=== PATIENT | female | born 1945 | race Caucasian/White ===

== ENCOUNTER 2021-01-24 20:13 | Inpatient (IN) ==
[2021-01-25] MEDS ORDERED: Naloxone 0.4 MG/ML INJ IVP PRN ×2 (00:04→17:07)
[2021-01-25] MEDS ORDERED: Norepinephrine 4 MG/254 ML IV.SOLN IVC SCH (00:45)
[2021-01-25] MEDS ORDERED: *HR* HYDROcodone/Acet 5/325 mg TABLET PO PRN ×2 (01:19→01:20)
[2021-01-25] MEDS ORDERED: Albuterol 2.5 MG/3 ML NEBULIZER IH PRN (01:21)
[2021-01-25] MEDS ORDERED: Ondansetron 4 MG/2 ML VIAL IVP PRN ×2 (01:37→17:07)
[2021-01-25 02:32] LABS: VBG Ionized Calcium 1.06 mmol/L (1.15-1.35)
[2021-01-25 02:48] LABS: Basophils % 0.2 %; Hematocrit 37.1 % (35.3-44.9); Hemoglobin 12.3 g/dL (11.5-15.4); Immature Granulocytes % 1.6 % (0-4); Lymphocytes # 0.6 K/mcL (0.6-4.6); Lymphocytes % 9.5 %; Mean Corpuscular HGB Conc 33.2 g/dL (31.6-35.5); Mean Corpuscular Hemoglobin 34.9 pg (28.0-33.3); Mean Corpuscular Volume 105.4 fL (83.0-100.0); Mean Platelet Volume 11.9 fL (9.4-12.4); Monocytes # 0.5 K/mcL (0.0-1.3); Monocytes % 7.8 %; Neutrophils # 5.2 K/mcL (1.6-8.9); Platelet Count 149 K/mcL (140-400); Red Blood Count 3.52 M/mcL (3.82-4.97); Red Cell Distribution Width 16.2 % (11.5-14.5); Segmented Neutrophils % 80.9 %; White Blood Count 6.4 K/mcL (4.3-11.1)
[2021-01-25 03:03] LABS: INR 1.1; Prothrombin Time 12.5 Seconds (9.4-12.1)
[2021-01-25 03:09] LABS: Alanine Aminotransferase 92 Units/L (7-52); Albumin 3.1 g/dL (3.5-5.7); Albumin/Globulin Ratio 0.9 (1.1-2.2); Alkaline Phosphatase 39 Units/L (34-104); Aspartate Amino Transferase 198 Units/L (13-39); BUN/Creatinine Ratio 23 (6-26); Bilirubin,Direct 0.1 mg/dL (0.0-0.2); Bilirubin,Indirect 0.3 mg/dL (0.0-1.0); Bilirubin,Total 0.4 mg/dL (0.3-1.0); Blood Urea Nitrogen 25 mg/dL (8-23); C-Reactive Protein 174 mg/L (Less than 10); Calcium 7.3 mg/dL (8.6-10.3); Carbon Dioxide 25 mEq/L (23-29); Chloride 104 mEq/L (98-107); Globulin 3.3 g/dL (2.4-3.5); Glucose 118 mg/dL (70-105); Magnesium 1.6 mg/dL (1.6-2.6); Osmolality,Calculated 287 (280-300); Phosphorous 2.4 mg/dL (2.7-4.5); Potassium 4.2 mEq/L (3.5-5.1); Sodium 136 mEq/L (136-145); Total Protein 6.4 g/dL (6.4-8.9); eGFR For African Americans > 60 (> 60); eGFR For Non-African Americans 50 (> 60)
[2021-01-25] MEDS ORDERED: *HR* Dextrose 50 % in Water (Vial) 50 ML VIAL IVP PRN ×2 (03:25→17:07)
[2021-01-25] MEDS ORDERED: D5% in Water 1,000 ML IVC PRN ×2 (03:25→17:07)
[2021-01-25] MEDS ORDERED: Dextrose Gel 15 GM/37.5 ML TUBE PO PRN ×4 (03:25→17:07)
[2021-01-25] MEDS: Calcium Gluconate 1gm/50mL 1 GM/50 ML BAG IVPB SCH ×2 (03:58→04:42)
[2021-01-25 05:08] LABS: Adenovirus Not Detected (Not Detect); Coronavirus 229E Not Detected (Not Detect); Coronavirus HKU1 Not Detected (Not Detect); Coronavirus NL63 Not Detected (Not Detect); Coronavirus OC43 Not Detected (Not Detect)
[2021-01-25 05:10] LABS: Bordetella Pertussis Not Detected (Not Detect); Chlamydophila pneumoniae Not Detected (Not Detect); Human Metapneumovirus Not Detected (Not Detect); Human Rhinovirus/Enterovirus Not Detected (Not Detect); Influenza A Subtype 2009 H1 Not Detected (Not Detect); Influenza B Not Detected (Not Detect); Mycoplasma pneumoniae Not Detected (Not Detect); Parainfluenza Virus 1 Not Detected (Not Detect); Parainfluenza Virus 2 Not Detected (Not Detect); Parainfluenza Virus 3 Not Detected (Not Detect); Parainfluenza Virus 4 Not Detected (Not Detect); Respiratory Syncytial Virus Not Detected (Not Detect); SARS-CoV-2 DETECTED (Not Detect)
[2021-01-25] MEDS ORDERED: *HR* Heparin 5,000 UNIT/ML VIAL SQ SCH (06:00)
[2021-01-25] MEDS ORDERED: Azithromycin 500 MG in 0.9 % Sodium Chloride 250 ML IVPB SCH (07:00)
[2021-01-25] MEDS: Piperacillin/Tazobactam 3.375 GM in 0.9 % Sodium Chloride Mini Bag 100 ML IVPB SCH ×2 (08:40→16:48)
[2021-01-25] MEDS ORDERED: Aspirin 81 MG TAB.CHEW PO SCH (09:00)
[2021-01-25] MEDS ORDERED: Dexamethasone Sodium Phos/PF 10 MG/ML VIAL IVP SCH ×2 (09:00)
[2021-01-25] MEDS ORDERED: cefTRIAXone 1,000 MG in Water for inj. (sterile) 10 ML IVP SCH (09:00)
[2021-01-25] MEDS ORDERED: Azithromycin 250 MG TABLET PO SCH (09:00)
[2021-01-25 09:01] LABS: Troponin I 0.07 ng/mL (< 0.04)
[2021-01-25] MEDS: Insulin LISPRO 300 UNITS/3 ML VIAL SUBQ SCH ×4 (09:55→21:19)
[2021-01-25] MEDS ORDERED: *HR* Enoxaparin 40 MG/0.4 ML SYRINGE SQ SCH (12:00)
[2021-01-25] MEDS ORDERED: Insulin LISPRO 300 UNITS/3 ML VIAL SUBQ SCH (21:00)
[2021-01-25 22:27] LABS: ABG Base Excess 2 mEq/L (-2 to 3); ABG HCO3 30 mEq/L (21-27); ABG Oxygen Saturation 87 % (95-98); ABG PCO2 61 mmHg (35-45); ABG PO2 60 mmHg (85-104); ABG TCO2 32 mEq/L (20-26)
[2021-01-26 04:00] LABS: Hematocrit 37.3 % (35.3-44.9); Mean Corpuscular HGB Conc 32.2 g/dL (31.6-35.5); Mean Corpuscular Hemoglobin 33.9 pg (28.0-33.3); Mean Corpuscular Volume 105.4 fL (83.0-100.0); Mean Platelet Volume 12.8 fL (9.4-12.4); Platelet Count 134 K/mcL (140-400); Red Blood Count 3.54 M/mcL (3.82-4.97); Red Cell Distribution Width 16.4 % (11.5-14.5); White Blood Count 5.9 K/mcL (4.3-11.1)
[2021-01-26 04:19] LABS: Alanine Aminotransferase 89 Units/L (7-52); Albumin 3.1 g/dL (3.5-5.7); Alkaline Phosphatase 39 Units/L (34-104); Aspartate Amino Transferase 94 Units/L (13-39); BUN/Creatinine Ratio 23 (6-26); Bilirubin,Total 0.4 mg/dL (0.3-1.0); Blood Urea Nitrogen 21 mg/dL (8-23); Calcium 8.4 mg/dL (8.6-10.3); Carbon Dioxide 30 mEq/L (23-29); Chloride 104 mEq/L (98-107); Globulin 3.2 g/dL (2.4-3.5); Glucose 116 mg/dL (70-105); Magnesium 2.3 mg/dL (1.6-2.6); Osmolality,Calculated 292 (280-300); Phosphorous 2.8 mg/dL (2.7-4.5); Potassium 4.9 mEq/L (3.5-5.1); Sodium 139 mEq/L (136-145); Total Protein 6.3 g/dL (6.4-8.9); eGFR For African Americans > 60 (> 60); eGFR For Non-African Americans 59 (> 60)
[2021-01-26 04:41] LABS: C-Reactive Protein 248 mg/L (Less than 10)
[2021-01-26] MEDS ORDERED: *HR* Enoxaparin 40 MG/0.4 ML SYRINGE SQ SCH (06:00)
[2021-01-26] MEDS ORDERED: Azithromycin 500 MG in 0.9 % Sodium Chloride 250 ML IVPB SCH (07:00)
[2021-01-26] MEDS: Insulin LISPRO 300 UNITS/3 ML VIAL SUBQ SCH ×4 (07:31→20:01)
[2021-01-26] MEDS: Piperacillin/Tazobactam 3.375 GM in 0.9 % Sodium Chloride Mini Bag 100 ML IVPB SCH ×4 (07:39→23:21)
[2021-01-26] MEDS: Dexamethasone Sodium Phos/PF 10 MG/ML VIAL IVP SCH (07:41)
[2021-01-26] MEDS: Aspirin 81 MG TAB.CHEW PO SCH (07:41)
[2021-01-26] MEDS: Azithromycin 250 MG TABLET PO SCH (07:43)
[2021-01-26 08:06] LABS: Lymphocytes # 0.5 K/mcL (0.6-4.6); Monocytes # 0.4 K/mcL (0.0-1.3); Neutrophils # 4.8 K/mcL (1.6-8.9); Reactive Lymphocytes Present (Not Present)
[2021-01-26 08:07] LABS: Platelet Estimate Decreased (Normal)
[2021-01-26 14:54] LABS: VBG Ionized Calcium 1.03 mmol/L (1.15-1.35)
[2021-01-26] MEDS ORDERED: NON-FORMULARY MEDICATION 1 EACH EACH (Ipratropium/Albuterol Sulfate 120 PUFF Inhaler) IH PRN (15:16)
[2021-01-26] MEDS: *HR* HYDROcodone/Acet 5/325 mg TABLET PO PRN ×2 (16:22→23:26)
[2021-01-26] MEDS: *HR* Enoxaparin 40 MG/0.4 ML SYRINGE SQ SCH (17:55)
[2021-01-26] MEDS ORDERED: Ketorolac 30 MG/ML VIAL IVP ONE (20:15)
[2021-01-26] MEDS: Ipratropium 1 PUFF INHALER IH PRN (20:33)
[2021-01-26] MEDS: Benzonatate 100 MG CAPSULE PO PRN (20:57)
[2021-01-27] MEDS ORDERED: 0.9 % Sodium Chloride 500 ML IVC ONE (04:10)
[2021-01-27] MEDS ORDERED: Ringers Solution, Lactated 500 ML IVC ONE (04:15)
[2021-01-27] MEDS: *HR* Enoxaparin 40 MG/0.4 ML SYRINGE SQ SCH ×2 (05:00→17:02)
[2021-01-27] MEDS: Piperacillin/Tazobactam 3.375 GM in 0.9 % Sodium Chloride Mini Bag 100 ML IVPB SCH ×3 (08:50→23:49)
[2021-01-27] MEDS: Aspirin 81 MG TAB.CHEW PO SCH (08:51)
[2021-01-27] MEDS: Dexamethasone Sodium Phos/PF 10 MG/ML VIAL IVP SCH (08:51)
[2021-01-27] MEDS: Azithromycin 250 MG TABLET PO SCH (08:51)
[2021-01-27] MEDS: Insulin LISPRO 300 UNITS/3 ML VIAL SUBQ SCH ×4 (08:52→21:30)
[2021-01-27] MEDS ORDERED: Ringers Solution, Lactated 1,000 ML IVC SCH (13:00)
[2021-01-27 22:43] LABS: Hematocrit 39.4 % (35.3-44.9); Hemoglobin 12.1 g/dL (11.5-15.4); Mean Corpuscular HGB Conc 30.7 g/dL (31.6-35.5); Mean Corpuscular Hemoglobin 34.1 pg (28.0-33.3); Mean Platelet Volume 10.9 fL (9.4-12.4); Platelet Count 199 K/mcL (140-400); Red Blood Count 3.55 M/mcL (3.82-4.97); Red Cell Distribution Width 16.8 % (11.5-14.5); White Blood Count 5.6 K/mcL (4.3-11.1)
[2021-01-27 23:02] LABS: Calcium 8.9 mg/dL (8.6-10.3); Magnesium 2.4 mg/dL (1.6-2.6); Potassium 4.8 mEq/L (3.5-5.1)
[2021-01-28] MEDS: *HR* HYDROcodone/Acet 5/325 mg TABLET PO PRN ×2 (03:33→20:55)
[2021-01-28] MEDS: *HR* Enoxaparin 40 MG/0.4 ML SYRINGE SQ SCH ×2 (05:35→17:06)
[2021-01-28 06:29] LABS: Hematocrit 39.8 % (35.3-44.9); Hemoglobin 12.8 g/dL (11.5-15.4); Mean Corpuscular HGB Conc 32.2 g/dL (31.6-35.5); Mean Corpuscular Hemoglobin 34.2 pg (28.0-33.3); Mean Corpuscular Volume 106.4 fL (83.0-100.0); Mean Platelet Volume 11.2 fL (9.4-12.4); Platelet Count 231 K/mcL (140-400); Red Blood Count 3.74 M/mcL (3.82-4.97); Red Cell Distribution Width 16.6 % (11.5-14.5)
[2021-01-28 06:52] LABS: Calcium 9.2 mg/dL (8.6-10.3); Potassium 4.9 mEq/L (3.5-5.1)
[2021-01-28] MEDS: Insulin LISPRO 300 UNITS/3 ML VIAL SUBQ SCH ×4 (09:07→20:40)
[2021-01-28] MEDS: Piperacillin/Tazobactam 3.375 GM in 0.9 % Sodium Chloride Mini Bag 100 ML IVPB SCH ×3 (09:07→23:53)
[2021-01-28] MEDS: Dexamethasone Sodium Phos/PF 10 MG/ML VIAL IVP SCH (09:09)
[2021-01-28] MEDS: Aspirin 81 MG TAB.CHEW PO SCH (09:10)
[2021-01-28] MEDS: Azithromycin 250 MG TABLET PO SCH (09:11)
[2021-01-28] MEDS: QUEtiapine Fumarate 25 MG TABLET PO SCH (17:06)
[2021-01-28] MEDS: Benzonatate 100 MG CAPSULE PO PRN (23:53)
[2021-01-29 01:46] LABS: BUN/Creatinine Ratio 34 (6-26); Blood Urea Nitrogen 35 mg/dL (8-23); Calcium 8.8 mg/dL (8.6-10.3); Carbon Dioxide 26 mEq/L (23-29); Chloride 107 mEq/L (98-107); Glucose 118 mg/dL (70-105); Magnesium 2.4 mg/dL (1.6-2.6); Osmolality,Calculated 299 (280-300); Phosphorous 2.8 mg/dL (2.7-4.5); Sodium 140 mEq/L (136-145); eGFR For African Americans > 60 (> 60); eGFR For Non-African Americans 53 (> 60)
[2021-01-29] MEDS: *HR* HYDROcodone/Acet 5/325 mg TABLET PO PRN (03:55)
[2021-01-29] MEDS: *HR* Enoxaparin 40 MG/0.4 ML SYRINGE SQ SCH ×2 (05:59→16:31)
[2021-01-29] MEDS: Dexamethasone Sodium Phos/PF 10 MG/ML VIAL IVP SCH (09:03)
[2021-01-29] MEDS: Aspirin 81 MG TAB.CHEW PO SCH (09:04)
[2021-01-29] MEDS: QUEtiapine Fumarate 25 MG TABLET PO SCH ×2 (09:04→21:00)
[2021-01-29] MEDS: Insulin LISPRO 300 UNITS/3 ML VIAL SUBQ SCH ×4 (09:05→20:59)
[2021-01-29] MEDS: Piperacillin/Tazobactam 3.375 GM in 0.9 % Sodium Chloride Mini Bag 100 ML IVPB SCH ×2 (09:05→16:30)
[2021-01-29] MEDS: Azithromycin 250 MG TABLET PO SCH (09:06)
[2021-01-29] MEDS ORDERED: Morphine Sulfate 2 MG/ML SYRINGE IVP PRN (13:10)
[2021-01-29] MEDS ORDERED: Simethicone 80 MG TAB.CHEW PO PRN (15:56)
[2021-01-29] MEDS ORDERED: *HR* LORazepam 2 MG/ML VIAL IVP ONE (19:43)
[2021-01-29] MEDS: Melatonin 3 MG TABLET PO SCH (21:00)
[2021-01-30] MEDS: Piperacillin/Tazobactam 3.375 GM in 0.9 % Sodium Chloride Mini Bag 100 ML IVPB SCH ×4 (00:13→23:59)
[2021-01-30] MEDS: *HR* Enoxaparin 40 MG/0.4 ML SYRINGE SQ SCH ×2 (05:37→16:55)
[2021-01-30 06:35] LABS: VBG HCO3 36 mEq/L (21-27); VBG PCO2 80 mmHg (41-51); VBG PH 7.26 pH Units (7.32-7.42); VBG PO2 76 mmHg (25-50)
[2021-01-30 06:37] LABS: Basophils # 0.1 K/mcL (0.0-0.2); Basophils % 0.9 %; Hematocrit 39.3 % (35.3-44.9); Hemoglobin 12.2 g/dL (11.5-15.4); Immature Granulocytes % 5.2 % (0-4); Lymphocytes # 0.9 K/mcL (0.6-4.6); Lymphocytes % 11.1 %; Mean Corpuscular Hemoglobin 33.9 pg (28.0-33.3); Mean Corpuscular Volume 109.2 fL (83.0-100.0); Mean Platelet Volume 12.2 fL (9.4-12.4); Monocytes % 16.6 %; Neutrophils # 5.4 K/mcL (1.6-8.9); Nucleated Red Blood Cells 0.4 /100 WBC (0); Platelet Count 219 K/mcL (140-400); Red Cell Distribution Width 16.7 % (11.5-14.5); Segmented Neutrophils % 66.2 %; White Blood Count 8.1 K/mcL (4.3-11.1)
[2021-01-30 06:50] LABS: Monocytes # 1.3 K/mcL (0.0-1.3)
[2021-01-30 06:53] LABS: Alanine Aminotransferase 29 Units/L (7-52); Albumin 3.4 g/dL (3.5-5.7); Albumin/Globulin Ratio 1.1 (1.1-2.2); Alkaline Phosphatase 33 Units/L (34-104); Aspartate Amino Transferase 21 Units/L (13-39); BUN/Creatinine Ratio 34 (6-26); Bilirubin,Direct 0.1 mg/dL (0.0-0.2); Bilirubin,Indirect 0.5 mg/dL (0.0-1.0); Bilirubin,Total 0.6 mg/dL (0.3-1.0); Blood Urea Nitrogen 35 mg/dL (8-23); Calcium 9.2 mg/dL (8.6-10.3); Carbon Dioxide 36 mEq/L (23-29); Chloride 107 mEq/L (98-107); Globulin 3.2 g/dL (2.4-3.5); Glucose 87 mg/dL (70-105); Magnesium 2.4 mg/dL (1.6-2.6); Osmolality,Calculated 311 (280-300); Phosphorous 3.5 mg/dL (2.7-4.5); Potassium 4.7 mEq/L (3.5-5.1); Sodium 147 mEq/L (136-145); Total Protein 6.6 g/dL (6.4-8.9); eGFR For African Americans > 60 (> 60); eGFR For Non-African Americans 52 (> 60)
[2021-01-30 07:15] LABS: Platelet Estimate Normal (Normal); Reactive Lymphocytes Present (Not Present)
[2021-01-30] MEDS ORDERED: Furosemide 40 MG/4 ML VIAL IVP ONE (08:00)
[2021-01-30] MEDS: Dexamethasone Sodium Phos/PF 10 MG/ML VIAL IVP SCH (08:09)
[2021-01-30] MEDS: Aspirin 81 MG TAB.CHEW PO SCH (08:12)
[2021-01-30] MEDS: Insulin LISPRO 300 UNITS/3 ML VIAL SUBQ SCH ×4 (08:13→23:02)
[2021-01-30 14:00] LABS: ABG Base Excess 13 mEq/L (-2 to 3); ABG HCO3 44 mEq/L (21-27); ABG Oxygen Saturation 92 % (95-98); ABG PCO2 87 mmHg (35-45); ABG PH 7.31 pH Units (7.32-7.45); ABG PO2 75 mmHg (85-104); ABG TCO2 46 mEq/L (20-26)
[2021-01-30 15:02] LABS: BUN/Creatinine Ratio 37 (6-26); Blood Urea Nitrogen 37 mg/dL (8-23); Calcium 9.2 mg/dL (8.6-10.3); Carbon Dioxide 34 mEq/L (23-29); Chloride 104 mEq/L (98-107); Glucose 106 mg/dL (70-105); Osmolality,Calculated 311 (280-300); Potassium 4.9 mEq/L (3.5-5.1); Sodium 146 mEq/L (136-145); eGFR For African Americans > 60 (> 60); eGFR For Non-African Americans 54 (> 60)
[2021-01-30] MEDS ORDERED: Furosemide 20 MG/2 ML VIAL IVP SCH (16:30)
[2021-01-30] MEDS: QUEtiapine Fumarate 25 MG TABLET PO SCH (20:27)
[2021-01-30] MEDS: Melatonin 3 MG TABLET PO SCH (20:27)
[2021-01-31] MEDS ORDERED: *HR* LORazepam 2 MG/ML VIAL IVP ONE ×2 (00:41→07:29)
[2021-01-31] MEDS: *HR* Enoxaparin 40 MG/0.4 ML SYRINGE SQ SCH ×2 (04:52→17:24)
[2021-01-31] MEDS: Piperacillin/Tazobactam 3.375 GM in 0.9 % Sodium Chloride Mini Bag 100 ML IVPB SCH ×2 (07:54→15:13)
[2021-01-31 07:55] LABS: ABG Base Excess 14 mEq/L (-2 to 3); ABG HCO3 46 mEq/L (21-27); ABG Oxygen Saturation 92 % (95-98); ABG PCO2 94 mmHg (35-45); ABG PO2 77 mmHg (85-104); ABG TCO2 49 mEq/L (20-26); Blood Gas Modality BiLevel; Blood Gas VT 520 cc
[2021-01-31] MEDS: Insulin LISPRO 300 UNITS/3 ML VIAL SUBQ SCH ×4 (09:00→20:53)
[2021-01-31] MEDS ORDERED: Furosemide 40 MG/4 ML VIAL IVP SCH (09:00)
[2021-01-31] MEDS: Aspirin 81 MG TAB.CHEW PO SCH (09:01)
[2021-01-31 09:33] LABS: ABG Base Excess 16 mEq/L (-2 to 3); ABG HCO3 47 mEq/L (21-27); ABG Oxygen Saturation 89 % (95-98); ABG PCO2 91 mmHg (35-45); ABG PH 7.32 pH Units (7.32-7.45); ABG PO2 65 mmHg (85-104); ABG TCO2 50 mEq/L (20-26); Blood Gas Modality BiLevel; Blood Gas VT 500 cc
[2021-01-31] MEDS: Dexamethasone Sodium Phos/PF 10 MG/ML VIAL IVP SCH (10:57)
[2021-01-31] MEDS ORDERED: Dexmedetomidine HCl 400 MCG/100 ML MLS IVC SCH (11:00)
[2021-01-31 13:41] LABS: Hematocrit 41.7 % (35.3-44.9); Mean Corpuscular HGB Conc 31.2 g/dL (31.6-35.5); Mean Corpuscular Hemoglobin 33.8 pg (28.0-33.3); Mean Corpuscular Volume 108.3 fL (83.0-100.0); Platelet Count 254 K/mcL (140-400); Red Blood Count 3.85 M/mcL (3.82-4.97); Red Cell Distribution Width 16.1 % (11.5-14.5)
[2021-01-31 13:48] LABS: VBG HCO3 56 mEq/L (21-27); VBG PCO2 139 mmHg (41-51); VBG PH 7.21 pH Units (7.32-7.42); VBG PO2 79 mmHg (25-50)
[2021-01-31 14:14] LABS: ABG Base Excess 15 mEq/L (-2 to 3); ABG HCO3 45 mEq/L (21-27); ABG Oxygen Saturation 90 % (95-98); ABG PCO2 82 mmHg (35-45); ABG PH 7.35 pH Units (7.32-7.45); ABG PO2 66 mmHg (85-104); ABG TCO2 48 mEq/L (20-26); Blood Gas Modality BiLevel
[2021-01-31 14:37] LABS: BUN/Creatinine Ratio 38 (6-26); Blood Urea Nitrogen 35 mg/dL (8-23); Calcium 9.2 mg/dL (8.6-10.3); Carbon Dioxide > 45 mEq/L (23-29); Chloride 98 mEq/L (98-107); Glucose 119 mg/dL (70-105); Magnesium 1.9 mg/dL (1.6-2.6); Osmolality,Calculated 317 (280-300); Potassium 3.9 mEq/L (3.5-5.1); Sodium 149 mEq/L (136-145); eGFR For African Americans > 60 (> 60); eGFR For Non-African Americans 59 (> 60)
[2021-01-31] MEDS: Dexmedetomidine HCl 400 MCG/100 ML MLS IVC SCH (20:15)
[2021-01-31] MEDS: Melatonin 3 MG TABLET PO SCH (20:51)
[2021-01-31] MEDS: QUEtiapine Fumarate 25 MG TABLET PO SCH (20:53)
[2021-02-01] MEDS: Dexmedetomidine HCl 400 MCG/100 ML MLS IVC SCH ×4 (00:16→17:11)
[2021-02-01] MEDS: Piperacillin/Tazobactam 3.375 GM in 0.9 % Sodium Chloride Mini Bag 100 ML IVPB SCH ×3 (00:19→18:15)
[2021-02-01 03:41] LABS: Basophils % 0.7 %; Hematocrit 37.9 % (35.3-44.9); Hemoglobin 11.9 g/dL (11.5-15.4); Immature Granulocytes % 5.1 % (0-4); Lymphocytes # 0.7 K/mcL (0.6-4.6); Lymphocytes % 16.6 %; Mean Corpuscular HGB Conc 31.4 g/dL (31.6-35.5); Mean Corpuscular Hemoglobin 33.4 pg (28.0-33.3); Mean Corpuscular Volume 106.5 fL (83.0-100.0); Mean Platelet Volume 11.4 fL (9.4-12.4); Monocytes # 0.6 K/mcL (0.0-1.3); Monocytes % 14.9 %; Neutrophils # 2.6 K/mcL (1.6-8.9); Platelet Count 179 K/mcL (140-400); Red Blood Count 3.56 M/mcL (3.82-4.97); Red Cell Distribution Width 15.7 % (11.5-14.5); Segmented Neutrophils % 62.7 %; White Blood Count 4.1 K/mcL (4.3-11.1)
[2021-02-01 03:52] LABS: C-Reactive Protein 41 mg/L (Less than 10); Lactate Dehydrogenase 174 Units/L (140-271)
[2021-02-01 03:57] LABS: Alanine Aminotransferase 21 Units/L (7-52); Albumin 3.3 g/dL (3.5-5.7); Alkaline Phosphatase 31 Units/L (34-104); Aspartate Amino Transferase 16 Units/L (13-39); BUN/Creatinine Ratio 42 (6-26); Bilirubin,Total 0.9 mg/dL (0.3-1.0); Blood Urea Nitrogen 42 mg/dL (8-23); Carbon Dioxide > 45 mEq/L (23-29); Chloride 97 mEq/L (98-107); Globulin 3.3 g/dL (2.4-3.5); Glucose 140 mg/dL (70-105); Osmolality,Calculated 319 (280-300); Potassium 4.8 mEq/L (3.5-5.1); Sodium 148 mEq/L (136-145); Total Protein 6.6 g/dL (6.4-8.9); eGFR For African Americans > 60 (> 60); eGFR For Non-African Americans 55 (> 60)
[2021-02-01 04:10] LABS: Ferritin 268 ng/mL (10-120)
[2021-02-01 04:26] LABS: D-Dimer 1302 ng/mLFEU (0-500); Fibrinogen 401 mg/dL (169-393)
[2021-02-01 05:04] LABS: Platelet Estimate Normal (Normal)
[2021-02-01] MEDS: *HR* Enoxaparin 40 MG/0.4 ML SYRINGE SQ SCH ×2 (06:32→18:15)
[2021-02-01 06:34] LABS: ABG Base Excess 19 mEq/L (-2 to 3); ABG HCO3 47 mEq/L (21-27); ABG Oxygen Saturation 87 % (95-98); ABG PCO2 71 mmHg (35-45); ABG PH 7.43 pH Units (7.32-7.45); ABG PO2 56 mmHg (85-104); ABG TCO2 49 mEq/L (20-26); Blood Gas VT 500 cc
[2021-02-01] MEDS ORDERED: 0.9 % Sodium Chloride 1,000 ML IVC SCH ×2 (08:15→14:28)
[2021-02-01] MEDS: Insulin LISPRO 300 UNITS/3 ML VIAL SUBQ SCH ×3 (10:34→17:59)
[2021-02-01] MEDS: Aspirin 81 MG TAB.CHEW PO SCH ×2 (10:45→11:20)
[2021-02-01] MEDS: Dexamethasone Sodium Phos/PF 10 MG/ML VIAL IVP SCH (10:48)
[2021-02-01 14:23] LABS: BUN/Creatinine Ratio 49 (6-26); Blood Urea Nitrogen 40 mg/dL (8-23); Calcium 9.1 mg/dL (8.6-10.3); Carbon Dioxide > 45 mEq/L (23-29); Chloride 98 mEq/L (98-107); Glucose 154 mg/dL (70-105); Osmolality,Calculated 319 (280-300); Sodium 148 mEq/L (136-145); eGFR For African Americans > 60 (> 60); eGFR For Non-African Americans > 60 (> 60)
[2021-02-01] MEDS: QUEtiapine Fumarate 25 MG TABLET PO SCH (20:32)
[2021-02-01] MEDS: Melatonin 3 MG TABLET PO SCH (20:32)
[2021-02-02] MEDS: Insulin LISPRO 300 UNITS/3 ML VIAL SUBQ SCH ×4 (00:09→17:36)
[2021-02-02] MEDS: Piperacillin/Tazobactam 3.375 GM in 0.9 % Sodium Chloride Mini Bag 100 ML IVPB SCH ×3 (00:42→16:16)
[2021-02-02] MEDS: *HR* Enoxaparin 40 MG/0.4 ML SYRINGE SQ SCH ×2 (06:48→17:36)
[2021-02-02] MEDS: Dexmedetomidine HCl 400 MCG/100 ML MLS IVC SCH (06:49)
[2021-02-02 08:23] LABS: Basophils % 0.4 %; Eosinophils % 0.4 %; Hematocrit 36.8 % (35.3-44.9); Hemoglobin 11.7 g/dL (11.5-15.4); Immature Granulocytes % 3.5 % (0-4); Lymphocytes # 0.7 K/mcL (0.6-4.6); Lymphocytes % 15.8 %; Mean Corpuscular HGB Conc 31.8 g/dL (31.6-35.5); Mean Platelet Volume 11.5 fL (9.4-12.4); Monocytes # 0.7 K/mcL (0.0-1.3); Monocytes % 15.5 %; Neutrophils # 2.9 K/mcL (1.6-8.9); Platelet Count 188 K/mcL (140-400); Red Blood Count 3.44 M/mcL (3.82-4.97); Red Cell Distribution Width 15.3 % (11.5-14.5); Segmented Neutrophils % 64.4 %; White Blood Count 4.6 K/mcL (4.3-11.1)
[2021-02-02 09:41] LABS: Alanine Aminotransferase 18 Units/L (7-52); Albumin 3.2 g/dL (3.5-5.7); Alkaline Phosphatase 30 Units/L (34-104); Aspartate Amino Transferase 17 Units/L (13-39); BUN/Creatinine Ratio 46 (6-26); Blood Urea Nitrogen 36 mg/dL (8-23); Calcium 8.7 mg/dL (8.6-10.3); Carbon Dioxide 43 mEq/L (23-29); Chloride 101 mEq/L (98-107); Globulin 3.1 g/dL (2.4-3.5); Glucose 85 mg/dL (70-105); Osmolality,Calculated 318 (280-300); Potassium 3.9 mEq/L (3.5-5.1); Sodium 150 mEq/L (136-145); Total Protein 6.3 g/dL (6.4-8.9); eGFR For African Americans > 60 (> 60); eGFR For Non-African Americans > 60 (> 60)
[2021-02-02] MEDS: Aspirin 81 MG TAB.CHEW PO SCH (09:45)
[2021-02-02] MEDS: Dexamethasone Sodium Phos/PF 10 MG/ML VIAL IVP SCH (10:26)
[2021-02-02] MEDS: 0.9 % Sodium Chloride 1,000 ML IVC SCH (16:17)
[2021-02-02] MEDS: Melatonin 3 MG TABLET PO SCH (21:56)
[2021-02-02] MEDS: QUEtiapine Fumarate 25 MG TABLET PO SCH (21:56)
[2021-02-03] MEDS: Insulin LISPRO 300 UNITS/3 ML VIAL SUBQ SCH ×5 (04:37→23:41)
[2021-02-03] MEDS: *HR* Enoxaparin 40 MG/0.4 ML SYRINGE SQ SCH ×2 (05:15→17:17)
[2021-02-03] MEDS: Piperacillin/Tazobactam 3.375 GM in 0.9 % Sodium Chloride Mini Bag 100 ML IVPB SCH ×3 (05:15→15:48)
[2021-02-03 05:59] LABS: Basophils % 0.2 %; Eosinophils % 0.2 %; Hematocrit 37.6 % (35.3-44.9); Hemoglobin 11.6 g/dL (11.5-15.4); Immature Granulocytes % 1.7 % (0-4); Lymphocytes # 0.6 K/mcL (0.6-4.6); Lymphocytes % 10.9 %; Mean Corpuscular HGB Conc 30.9 g/dL (31.6-35.5); Mean Corpuscular Hemoglobin 33.2 pg (28.0-33.3); Mean Corpuscular Volume 107.7 fL (83.0-100.0); Mean Platelet Volume 11.6 fL (9.4-12.4); Monocytes # 0.6 K/mcL (0.0-1.3); Monocytes % 10.7 %; Platelet Count 153 K/mcL (140-400); Red Blood Count 3.49 M/mcL (3.82-4.97); Red Cell Distribution Width 15.1 % (11.5-14.5); Segmented Neutrophils % 76.3 %; White Blood Count 5.3 K/mcL (4.3-11.1)
[2021-02-03 06:11] LABS: Fibrinogen 368 mg/dL (169-393)
[2021-02-03 06:13] LABS: D-Dimer 1349 ng/mLFEU (0-500)
[2021-02-03 06:28] LABS: Magnesium 2.1 mg/dL (1.6-2.6); Phosphorous 2.6 mg/dL (2.7-4.5)
[2021-02-03 06:31] LABS: Alanine Aminotransferase 15 Units/L (7-52); Albumin 3.2 g/dL (3.5-5.7); Albumin/Globulin Ratio 1.1 (1.1-2.2); Alkaline Phosphatase 30 Units/L (34-104); Aspartate Amino Transferase 18 Units/L (13-39); BUN/Creatinine Ratio 45 (6-26); Bilirubin,Total 0.8 mg/dL (0.3-1.0); Blood Urea Nitrogen 30 mg/dL (8-23); Calcium 8.7 mg/dL (8.6-10.3); Carbon Dioxide 42 mEq/L (23-29); Chloride 104 mEq/L (98-107); Glucose 71 mg/dL (70-105); Lactate Dehydrogenase 188 Units/L (140-271); Osmolality,Calculated 313 (280-300); Potassium 3.9 mEq/L (3.5-5.1); Sodium 149 mEq/L (136-145); Total Protein 6.2 g/dL (6.4-8.9); eGFR For African Americans > 60 (> 60); eGFR For Non-African Americans > 60 (> 60)
[2021-02-03 06:40] LABS: Ferritin 322 ng/mL (10-120)
[2021-02-03] MEDS ORDERED: *HR* Metoprolol 5 MG/5 ML VIAL IVP PRN (08:50)
[2021-02-03] MEDS: Dexamethasone Sodium Phos/PF 10 MG/ML VIAL IVP SCH (12:13)
[2021-02-03] MEDS: Aspirin 81 MG TAB.CHEW PO SCH (12:13)
[2021-02-03] MEDS: 0.9 % Sodium Chloride 1,000 ML IVC SCH (17:16)
[2021-02-03 19:38] LABS: C-Reactive Protein 18 mg/L (Less than 10)
[2021-02-03] MEDS: Melatonin 3 MG TABLET PO SCH (20:30)
[2021-02-03] MEDS: QUEtiapine Fumarate 25 MG TABLET PO SCH (20:30)
[2021-02-04] MEDS: Piperacillin/Tazobactam 3.375 GM in 0.9 % Sodium Chloride Mini Bag 100 ML IVPB SCH (00:21)
[2021-02-04] MEDS: *HR* Enoxaparin 40 MG/0.4 ML SYRINGE SQ SCH ×2 (05:35→18:01)
[2021-02-04 06:12] LABS: Basophils % 0.3 %; Eosinophils % 0.1 %; Hemoglobin 11.6 g/dL (11.5-15.4); Immature Granulocytes % 1.4 % (0-4); Lymphocytes # 0.6 K/mcL (0.6-4.6); Lymphocytes % 8.9 %; Mean Corpuscular HGB Conc 31.4 g/dL (31.6-35.5); Mean Corpuscular Hemoglobin 33.7 pg (28.0-33.3); Mean Corpuscular Volume 107.6 fL (83.0-100.0); Mean Platelet Volume 11.3 fL (9.4-12.4); Monocytes # 0.7 K/mcL (0.0-1.3); Neutrophils # 5.6 K/mcL (1.6-8.9); Platelet Count 161 K/mcL (140-400); Red Blood Count 3.44 M/mcL (3.82-4.97); Segmented Neutrophils % 79.3 %; White Blood Count 7.1 K/mcL (4.3-11.1)
[2021-02-04 06:40] LABS: Phosphorous 2.8 mg/dL (2.7-4.5)
[2021-02-04 06:50] LABS: Alanine Aminotransferase 15 Units/L (7-52); Albumin 3.1 g/dL (3.5-5.7); Albumin/Globulin Ratio 1.1 (1.1-2.2); Alkaline Phosphatase 29 Units/L (34-104); Aspartate Amino Transferase 16 Units/L (13-39); BUN/Creatinine Ratio 38 (6-26); Bilirubin,Total 0.8 mg/dL (0.3-1.0); Blood Urea Nitrogen 27 mg/dL (8-23); Calcium 8.4 mg/dL (8.6-10.3); Carbon Dioxide 41 mEq/L (23-29); Chloride 103 mEq/L (98-107); Globulin 2.9 g/dL (2.4-3.5); Glucose 93 mg/dL (70-105); Osmolality,Calculated 309 (280-300); Potassium 3.8 mEq/L (3.5-5.1); Sodium 147 mEq/L (136-145); eGFR For African Americans > 60 (> 60); eGFR For Non-African Americans > 60 (> 60)
[2021-02-04] MEDS: Insulin LISPRO 300 UNITS/3 ML VIAL SUBQ SCH ×3 (09:27→16:42)
[2021-02-04] MEDS: Aspirin 81 MG TAB.CHEW PO SCH (09:41)
[2021-02-04] MEDS: 0.9 % Sodium Chloride 1,000 ML IVC SCH (12:29)
[2021-02-04] MEDS: amLODIPine 5 MG TABLET PO SCH (15:48)
[2021-02-04] MEDS: QUEtiapine Fumarate 25 MG TABLET PO SCH (20:27)
[2021-02-04] MEDS: Melatonin 3 MG TABLET PO SCH (20:27)
[2021-02-05] MEDS: Insulin LISPRO 300 UNITS/3 ML VIAL SUBQ SCH ×4 (01:53→17:58)
[2021-02-05] MEDS: *HR* Enoxaparin 40 MG/0.4 ML SYRINGE SQ SCH ×2 (04:45→18:03)
[2021-02-05 05:13] LABS: Basophils % 0.2 %; Eosinophils % 0.2 %; Hematocrit 38.3 % (35.3-44.9); Hemoglobin 11.8 g/dL (11.5-15.4); Lymphocytes # 0.7 K/mcL (0.6-4.6); Lymphocytes % 8.4 %; Mean Corpuscular HGB Conc 30.8 g/dL (31.6-35.5); Mean Corpuscular Hemoglobin 33.2 pg (28.0-33.3); Mean Corpuscular Volume 107.9 fL (83.0-100.0); Mean Platelet Volume 12.8 fL (9.4-12.4); Monocytes # 0.9 K/mcL (0.0-1.3); Monocytes % 10.4 %; Platelet Count 103 K/mcL (140-400); Red Blood Count 3.55 M/mcL (3.82-4.97); Red Cell Distribution Width 14.8 % (11.5-14.5); Segmented Neutrophils % 79.8 %; White Blood Count 8.7 K/mcL (4.3-11.1)
[2021-02-05 05:24] LABS: Fibrinogen 368 mg/dL (169-393)
[2021-02-05 05:25] LABS: D-Dimer 1059 ng/mLFEU (0-500)
[2021-02-05 06:04] LABS: Alanine Aminotransferase 16 Units/L (7-52); Alkaline Phosphatase 29 Units/L (34-104); Aspartate Amino Transferase 17 Units/L (13-39); BUN/Creatinine Ratio 38 (6-26); Bilirubin,Total 0.7 mg/dL (0.3-1.0); Blood Urea Nitrogen 20 mg/dL (8-23); C-Reactive Protein 33 mg/L (Less than 10); Calcium 8.2 mg/dL (8.6-10.3); Carbon Dioxide 39 mEq/L (23-29); Chloride 103 mEq/L (98-107); Ferritin 282 ng/mL (10-120); Globulin 2.9 g/dL (2.4-3.5); Glucose 95 mg/dL (70-105); Lactate Dehydrogenase 162 Units/L (140-271); Magnesium 1.8 mg/dL (1.6-2.6); Osmolality,Calculated 304 (280-300); Phosphorous 2.3 mg/dL (2.7-4.5); Potassium 3.5 mEq/L (3.5-5.1); Sodium 146 mEq/L (136-145); Total Protein 5.9 g/dL (6.4-8.9); eGFR For African Americans > 60 (> 60); eGFR For Non-African Americans > 60 (> 60)
[2021-02-05] MEDS: Aspirin 81 MG TAB.CHEW PO SCH (07:50)
[2021-02-05] MEDS: amLODIPine 5 MG TABLET PO SCH (07:51)
[2021-02-05] MEDS ORDERED: Potassium Phosphate 44 MEQ in 0.9 % Sodium Chloride 250 ML IVPB ONE (08:00)
[2021-02-05] MEDS: 0.9 % Sodium Chloride 1,000 ML IVC SCH ×2 (10:01→10:05)
[2021-02-05] MEDS: Melatonin 3 MG TABLET PO SCH (22:27)
[2021-02-05] MEDS: QUEtiapine Fumarate 25 MG TABLET PO SCH (22:27)
[2021-02-06] MEDS: Insulin LISPRO 300 UNITS/3 ML VIAL SUBQ SCH ×4 (00:45→18:51)
[2021-02-06] MEDS: *HR* Enoxaparin 40 MG/0.4 ML SYRINGE SQ SCH ×2 (04:41→19:03)
[2021-02-06 05:59] LABS: Basophils % 0.2 %; Hematocrit 35.5 % (35.3-44.9); Immature Granulocytes % 1.2 % (0-4); Lymphocytes # 0.6 K/mcL (0.6-4.6); Lymphocytes % 7.2 %; Mean Corpuscular Hemoglobin 33.5 pg (28.0-33.3); Mean Corpuscular Volume 108.2 fL (83.0-100.0); Mean Platelet Volume 12.2 fL (9.4-12.4); Monocytes # 0.9 K/mcL (0.0-1.3); Monocytes % 10.3 %; Platelet Count 132 K/mcL (140-400); Red Blood Count 3.28 M/mcL (3.82-4.97); Red Cell Distribution Width 14.7 % (11.5-14.5); Segmented Neutrophils % 81.1 %; White Blood Count 8.6 K/mcL (4.3-11.1)
[2021-02-06 06:49] LABS: Alanine Aminotransferase 13 Units/L (7-52); Albumin/Globulin Ratio 1.1 (1.1-2.2); Alkaline Phosphatase 28 Units/L (34-104); Aspartate Amino Transferase 14 Units/L (13-39); BUN/Creatinine Ratio 29 (6-26); Bilirubin,Total 0.7 mg/dL (0.3-1.0); Blood Urea Nitrogen 18 mg/dL (8-23); Calcium 8.3 mg/dL (8.6-10.3); Carbon Dioxide 39 mEq/L (23-29); Chloride 103 mEq/L (98-107); Globulin 2.7 g/dL (2.4-3.5); Glucose 90 mg/dL (70-105); Osmolality,Calculated 303 (280-300); Potassium 3.8 mEq/L (3.5-5.1); Sodium 146 mEq/L (136-145); Total Protein 5.7 g/dL (6.4-8.9); eGFR For African Americans > 60 (> 60); eGFR For Non-African Americans > 60 (> 60)
[2021-02-06 10:16] LABS: Magnesium 1.9 mg/dL (1.6-2.6); Phosphorous 2.7 mg/dL (2.7-4.5)
[2021-02-06] MEDS: Aspirin 81 MG TAB.CHEW PO SCH (10:22)
[2021-02-06] MEDS: amLODIPine 5 MG TABLET PO SCH (10:22)
[2021-02-06] MEDS: QUEtiapine Fumarate 25 MG TABLET PO SCH (21:15)
[2021-02-06] MEDS: Melatonin 3 MG TABLET PO SCH (21:16)
[2021-02-07] MEDS: *HR* Enoxaparin 40 MG/0.4 ML SYRINGE SQ SCH ×2 (05:44→18:02)
[2021-02-07 06:36] LABS: Basophils % 0.2 %; Hematocrit 34.2 % (35.3-44.9); Hemoglobin 10.3 g/dL (11.5-15.4); Immature Granulocytes % 1.1 % (0-4); Lymphocytes # 0.8 K/mcL (0.6-4.6); Lymphocytes % 9.3 %; Mean Corpuscular HGB Conc 30.1 g/dL (31.6-35.5); Mean Corpuscular Volume 109.6 fL (83.0-100.0); Mean Platelet Volume 12.1 fL (9.4-12.4); Monocytes # 0.9 K/mcL (0.0-1.3); Monocytes % 10.8 %; Neutrophils # 6.5 K/mcL (1.6-8.9); Platelet Count 150 K/mcL (140-400); Red Blood Count 3.12 M/mcL (3.82-4.97); Red Cell Distribution Width 15.1 % (11.5-14.5); Segmented Neutrophils % 78.6 %; White Blood Count 8.3 K/mcL (4.3-11.1)
[2021-02-07 06:47] LABS: D-Dimer 687 ng/mLFEU (0-500); Fibrinogen 645 mg/dL (169-393)
[2021-02-07 06:52] LABS: Magnesium 1.9 mg/dL (1.6-2.6); Phosphorous 2.3 mg/dL (2.7-4.5)
[2021-02-07 07:06] LABS: Alanine Aminotransferase 11 Units/L (7-52); Albumin 2.9 g/dL (3.5-5.7); Alkaline Phosphatase 27 Units/L (34-104); Aspartate Amino Transferase 11 Units/L (13-39); BUN/Creatinine Ratio 27 (6-26); Bilirubin,Total 0.7 mg/dL (0.3-1.0); Blood Urea Nitrogen 21 mg/dL (8-23); Calcium 8.4 mg/dL (8.6-10.3); Carbon Dioxide 38 mEq/L (23-29); Chloride 101 mEq/L (98-107); Globulin 2.8 g/dL (2.4-3.5); Glucose 86 mg/dL (70-105); Lactate Dehydrogenase 145 Units/L (140-271); Osmolality,Calculated 302 (280-300); Potassium 3.7 mEq/L (3.5-5.1); Sodium 145 mEq/L (136-145); Total Protein 5.7 g/dL (6.4-8.9); eGFR For African Americans > 60 (> 60); eGFR For Non-African Americans > 60 (> 60)
[2021-02-07 07:12] LABS: Ferritin 440 ng/mL (10-120)
[2021-02-07] MEDS: Insulin LISPRO 300 UNITS/3 ML VIAL SUBQ SCH ×4 (07:25→17:35)
[2021-02-07 09:52] LABS: C-Reactive Protein 168 mg/L (Less than 10)
[2021-02-07] MEDS: Aspirin 81 MG TAB.CHEW PO SCH (10:29)
[2021-02-07] MEDS: amLODIPine 5 MG TABLET PO SCH (10:30)
[2021-02-07] MEDS: Ipratropium 1 PUFF INHALER IH PRN (11:13)
[2021-02-07] MEDS: QUEtiapine Fumarate 25 MG TABLET PO SCH (20:42)
[2021-02-07] MEDS: Benzonatate 100 MG CAPSULE PO PRN (20:42)
[2021-02-07] MEDS: Melatonin 3 MG TABLET PO SCH (20:42)
[2021-02-08] MEDS: Insulin LISPRO 300 UNITS/3 ML VIAL SUBQ SCH ×4 (00:05→18:24)
[2021-02-08 03:35] LABS: VBG HCO3 43 mEq/L (21-27); VBG PCO2 88 mmHg (41-51); VBG PH 7.29 pH Units (7.32-7.42); VBG PO2 72 mmHg (25-50)
[2021-02-08 04:02] LABS: BUN/Creatinine Ratio 29 (6-26); Blood Urea Nitrogen 20 mg/dL (8-23); Calcium 8.5 mg/dL (8.6-10.3); Carbon Dioxide 40 mEq/L (23-29); Chloride 101 mEq/L (98-107); Glucose 99 mg/dL (70-105); Magnesium 1.9 mg/dL (1.6-2.6); Osmolality,Calculated 301 (280-300); Phosphorous 1.8 mg/dL (2.7-4.5); Potassium 3.8 mEq/L (3.5-5.1); Sodium 144 mEq/L (136-145); eGFR For African Americans > 60 (> 60); eGFR For Non-African Americans > 60 (> 60)
[2021-02-08] MEDS: *HR* Enoxaparin 40 MG/0.4 ML SYRINGE SQ SCH ×2 (06:15→17:58)
[2021-02-08] MEDS: Aspirin 81 MG TAB.CHEW PO SCH (08:54)
[2021-02-08] MEDS: amLODIPine 5 MG TABLET PO SCH (08:54)
[2021-02-08 19:06] LABS: VBG HCO3 40 mEq/L (21-27); VBG PCO2 78 mmHg (41-51); VBG PH 7.31 pH Units (7.32-7.42); VBG PO2 117 mmHg (25-50)
[2021-02-08] MEDS: QUEtiapine Fumarate 25 MG TABLET PO SCH (20:51)
[2021-02-08] MEDS: Melatonin 3 MG TABLET PO SCH (20:52)
[2021-02-09] MEDS: Insulin LISPRO 300 UNITS/3 ML VIAL SUBQ SCH ×5 (00:47→23:31)
[2021-02-09] MEDS: *HR* Enoxaparin 40 MG/0.4 ML SYRINGE SQ SCH ×2 (05:29→17:01)
[2021-02-09 06:06] LABS: VBG HCO3 40 mEq/L (21-27); VBG PCO2 80 mmHg (41-51); VBG PO2 60 mmHg (25-50)
[2021-02-09 06:30] LABS: Hematocrit 32.2 % (35.3-44.9); Hemoglobin 10.1 g/dL (11.5-15.4); Mean Corpuscular HGB Conc 31.4 g/dL (31.6-35.5); Mean Corpuscular Hemoglobin 34.4 pg (28.0-33.3); Mean Corpuscular Volume 109.5 fL (83.0-100.0); Mean Platelet Volume 11.4 fL (9.4-12.4); Platelet Count 186 K/mcL (140-400); Red Blood Count 2.94 M/mcL (3.82-4.97); White Blood Count 10.1 K/mcL (4.3-11.1)
[2021-02-09 06:33] LABS: BUN/Creatinine Ratio 28 (6-26); Blood Urea Nitrogen 20 mg/dL (8-23); Calcium 9.1 mg/dL (8.6-10.3); Carbon Dioxide 42 mEq/L (23-29); Chloride 99 mEq/L (98-107); Glucose 126 mg/dL (70-105); Osmolality,Calculated 302 (280-300); Phosphorous 1.9 mg/dL (2.7-4.5); Potassium 3.6 mEq/L (3.5-5.1); Sodium 144 mEq/L (136-145); eGFR For African Americans > 60 (> 60); eGFR For Non-African Americans > 60 (> 60)
[2021-02-09] MEDS: amLODIPine 5 MG TABLET PO SCH (08:20)
[2021-02-09] MEDS: Aspirin 81 MG TAB.CHEW PO SCH (08:20)
[2021-02-09] MEDS: Furosemide 40 MG/4 ML VIAL IVP SCH (12:41)
[2021-02-09] MEDS: QUEtiapine Fumarate 25 MG TABLET PO SCH (21:34)
[2021-02-09] MEDS: Melatonin 3 MG TABLET PO SCH (21:34)
[2021-02-10] MEDS: *HR* Enoxaparin 40 MG/0.4 ML SYRINGE SQ SCH ×2 (04:42→18:15)
[2021-02-10 05:33] LABS: BUN/Creatinine Ratio 26 (6-26); Blood Urea Nitrogen 20 mg/dL (8-23); Calcium 8.9 mg/dL (8.6-10.3); Carbon Dioxide 44 mEq/L (23-29); Chloride 96 mEq/L (98-107); Glucose 121 mg/dL (70-105); Magnesium 1.9 mg/dL (1.6-2.6); Osmolality,Calculated 298 (280-300); Phosphorous 2.5 mg/dL (2.7-4.5); Potassium 3.5 mEq/L (3.5-5.1); Sodium 142 mEq/L (136-145); eGFR For African Americans > 60 (> 60); eGFR For Non-African Americans > 60 (> 60)
[2021-02-10] MEDS: Insulin LISPRO 300 UNITS/3 ML VIAL SUBQ SCH ×4 (05:41→23:57)
[2021-02-10] MEDS: Aspirin 81 MG TAB.CHEW PO SCH (09:54)
[2021-02-10] MEDS: amLODIPine 5 MG TABLET PO SCH (09:54)
[2021-02-10] MEDS: Furosemide 40 MG/4 ML VIAL IVP SCH (09:55)
[2021-02-10] MEDS: QUEtiapine Fumarate 25 MG TABLET PO SCH (20:20)
[2021-02-10] MEDS: Melatonin 3 MG TABLET PO SCH (20:21)
[2021-02-11 03:23] LABS: VBG HCO3 49 mEq/L (21-27); VBG PCO2 87 mmHg (41-51); VBG PH 7.36 pH Units (7.32-7.42); VBG PO2 51 mmHg (25-50)
[2021-02-11 03:25] LABS: Hematocrit 31.8 % (35.3-44.9); Hemoglobin 9.8 g/dL (11.5-15.4); Mean Corpuscular HGB Conc 30.8 g/dL (31.6-35.5); Mean Corpuscular Hemoglobin 33.3 pg (28.0-33.3); Mean Corpuscular Volume 108.2 fL (83.0-100.0); Mean Platelet Volume 10.8 fL (9.4-12.4); Platelet Count 181 K/mcL (140-400); Red Blood Count 2.94 M/mcL (3.82-4.97); Red Cell Distribution Width 14.6 % (11.5-14.5)
[2021-02-11 03:58] LABS: BUN/Creatinine Ratio 27 (6-26); Blood Urea Nitrogen 20 mg/dL (8-23); Calcium 9.2 mg/dL (8.6-10.3); Carbon Dioxide 45 mEq/L (23-29); Chloride 92 mEq/L (98-107); Glucose 111 mg/dL (70-105); Magnesium 1.8 mg/dL (1.6-2.6); Osmolality,Calculated 297 (280-300); Potassium 3.4 mEq/L (3.5-5.1); Sodium 142 mEq/L (136-145); eGFR For African Americans > 60 (> 60); eGFR For Non-African Americans > 60 (> 60)
[2021-02-11 04:31] LABS: ABG Base Excess 20 mEq/L (-2 to 3); ABG HCO3 49 mEq/L (21-27); ABG Oxygen Saturation 84 % (95-98); ABG PCO2 88 mmHg (35-45); ABG PH 7.35 pH Units (7.32-7.45); ABG PO2 55 mmHg (85-104); ABG TCO2 > 50 mEq/L (20-26); Blood Gas Modality CPAP/PS; Blood Gas VT 480 cc
[2021-02-11] MEDS: *HR* Enoxaparin 40 MG/0.4 ML SYRINGE SQ SCH ×2 (05:35→17:37)
[2021-02-11] MEDS: Insulin LISPRO 300 UNITS/3 ML VIAL SUBQ SCH ×3 (06:49→17:36)
[2021-02-11 08:06] LABS: ABG Base Excess 19 mEq/L (-2 to 3); ABG HCO3 50 mEq/L (21-27); ABG Oxygen Saturation 91 % (95-98); ABG PCO2 90 mmHg (35-45); ABG PH 7.36 pH Units (7.32-7.45); ABG PO2 70 mmHg (85-104); ABG TCO2 > 50 mEq/L (20-26); Blood Gas VT 480 cc
[2021-02-11] MEDS: Aspirin 81 MG TAB.CHEW PO SCH (08:49)
[2021-02-11] MEDS: Potassium Chloride Elixir 20 MEQ/15 ML UDC PO ONE (08:49)
[2021-02-11] MEDS: Furosemide 40 MG/4 ML VIAL IVP SCH (08:49)
[2021-02-11] MEDS: amLODIPine 5 MG TABLET PO SCH (08:49)
[2021-02-11] MEDS: Melatonin 3 MG TABLET PO SCH (20:50)
[2021-02-11] MEDS: QUEtiapine Fumarate 25 MG TABLET PO SCH (20:50)
[2021-02-12] MEDS ORDERED: Isovue-370 500 ML BOTTLE IVP ONE (00:46)
[2021-02-12 05:08] LABS: BUN/Creatinine Ratio 28 (6-26); Blood Urea Nitrogen 21 mg/dL (8-23); Calcium 9.2 mg/dL (8.6-10.3); Carbon Dioxide > 45 mEq/L (23-29); Chloride 88 mEq/L (98-107); Glucose 122 mg/dL (70-105); Magnesium 1.8 mg/dL (1.6-2.6); Osmolality,Calculated 296 (280-300); Phosphorous 2.7 mg/dL (2.7-4.5); Potassium 3.2 mEq/L (3.5-5.1); Sodium 141 mEq/L (136-145); eGFR For African Americans > 60 (> 60); eGFR For Non-African Americans > 60 (> 60)
[2021-02-12] MEDS: *HR* Enoxaparin 40 MG/0.4 ML SYRINGE SQ SCH ×2 (05:15→16:39)
[2021-02-12] MEDS: Furosemide 40 MG/4 ML VIAL IVP SCH (09:08)
[2021-02-12] MEDS: Aspirin 81 MG TAB.CHEW PO SCH (09:09)
[2021-02-12] MEDS: amLODIPine 5 MG TABLET PO SCH (09:09)
[2021-02-12] MEDS: ceFAZolin 2,000 MG in 0.9 % Sodium Chloride 100 ML IVPB SCH ×2 (09:09→16:38)
[2021-02-12] MEDS ORDERED: Potassium Chloride Elixir 20 MEQ/15 ML UDC PO ONE (14:16)
[2021-02-12] MEDS: Potassium Chloride Elixir 20 MEQ/15 ML UDC PO ONE (17:09)
[2021-02-12] MEDS: Melatonin 3 MG TABLET PO SCH (19:56)
[2021-02-12] MEDS: QUEtiapine Fumarate 25 MG TABLET PO SCH (21:59)
[2021-02-13] MEDS: ceFAZolin 2,000 MG in 0.9 % Sodium Chloride 100 ML IVPB SCH ×3 (00:50→16:07)
[2021-02-13] MEDS: *HR* Enoxaparin 40 MG/0.4 ML SYRINGE SQ SCH ×2 (05:49→17:15)
[2021-02-13 06:17] LABS: Hematocrit 31.4 % (35.3-44.9); Hemoglobin 9.5 g/dL (11.5-15.4); Mean Corpuscular HGB Conc 30.3 g/dL (31.6-35.5); Mean Corpuscular Hemoglobin 32.5 pg (28.0-33.3); Mean Corpuscular Volume 107.5 fL (83.0-100.0); Platelet Count 168 K/mcL (140-400); Red Blood Count 2.92 M/mcL (3.82-4.97); Red Cell Distribution Width 14.7 % (11.5-14.5); White Blood Count 6.3 K/mcL (4.3-11.1)
[2021-02-13 06:24] LABS: VBG HCO3 54 mEq/L (21-27); VBG PCO2 95 mmHg (41-51); VBG PH 7.36 pH Units (7.32-7.42); VBG PO2 107 mmHg (25-50)
[2021-02-13 06:52] LABS: BUN/Creatinine Ratio 29 (6-26); Blood Urea Nitrogen 20 mg/dL (8-23); Calcium 8.9 mg/dL (8.6-10.3); Carbon Dioxide > 45 mEq/L (23-29); Chloride 85 mEq/L (98-107); Glucose 97 mg/dL (70-105); Osmolality,Calculated 293 (280-300); Potassium 3.4 mEq/L (3.5-5.1); Sodium 140 mEq/L (136-145); eGFR For African Americans > 60 (> 60); eGFR For Non-African Americans > 60 (> 60)
[2021-02-13] MEDS: Furosemide 40 MG/4 ML VIAL IVP SCH (09:28)
[2021-02-13] MEDS: amLODIPine 5 MG TABLET PO SCH (09:29)
[2021-02-13] MEDS: Aspirin 81 MG TAB.CHEW PO SCH (09:29)
[2021-02-13] MEDS ORDERED: Potassium Chloride Elixir 20 MEQ/15 ML UDC PO ONE (13:15)
[2021-02-13] MEDS: QUEtiapine Fumarate 25 MG TABLET PO SCH (21:19)
[2021-02-13] MEDS: Melatonin 3 MG TABLET PO SCH (21:19)
[2021-02-14] MEDS: ceFAZolin 2,000 MG in 0.9 % Sodium Chloride 100 ML IVPB SCH ×3 (00:31→17:15)
[2021-02-14] MEDS: *HR* Enoxaparin 40 MG/0.4 ML SYRINGE SQ SCH ×2 (05:37→17:15)
[2021-02-14 06:15] LABS: VBG HCO3 55 mEq/L (21-27); VBG PCO2 92 mmHg (41-51); VBG PH 7.39 pH Units (7.32-7.42); VBG PO2 192 mmHg (25-50)
[2021-02-14] MEDS: Aspirin 81 MG TAB.CHEW PO SCH (08:12)
[2021-02-14] MEDS: amLODIPine 5 MG TABLET PO SCH (08:12)
[2021-02-14] MEDS: Furosemide 40 MG/4 ML VIAL IVP SCH (08:12)
[2021-02-14 08:49] LABS: BUN/Creatinine Ratio 28 (6-26); Blood Urea Nitrogen 19 mg/dL (8-23); Calcium 9.1 mg/dL (8.6-10.3); Carbon Dioxide > 45 mEq/L (23-29); Chloride 86 mEq/L (98-107); Glucose 117 mg/dL (70-105); Magnesium 1.9 mg/dL (1.6-2.6); Osmolality,Calculated 297 (280-300); Potassium 3.3 mEq/L (3.5-5.1); Sodium 142 mEq/L (136-145); eGFR For African Americans > 60 (> 60); eGFR For Non-African Americans > 60 (> 60)
[2021-02-14] MEDS: Ipratropium 1 PUFF INHALER IH SCH ×4 (11:02→23:41)
[2021-02-14] MEDS: Benzonatate 100 MG CAPSULE PO PRN (21:47)
[2021-02-14] MEDS: QUEtiapine Fumarate 25 MG TABLET PO SCH (21:47)
[2021-02-14] MEDS: Melatonin 3 MG TABLET PO SCH (21:47)
[2021-02-15] MEDS: ceFAZolin 2,000 MG in 0.9 % Sodium Chloride 100 ML IVPB SCH ×3 (00:30→17:48)
[2021-02-15] MEDS: Ipratropium 1 PUFF INHALER IH SCH ×5 (03:59→20:20)
[2021-02-15] MEDS: *HR* Enoxaparin 40 MG/0.4 ML SYRINGE SQ SCH ×2 (06:28→17:48)
[2021-02-15 06:48] LABS: Hematocrit 30.9 % (35.3-44.9); Hemoglobin 9.5 g/dL (11.5-15.4); Mean Corpuscular HGB Conc 30.7 g/dL (31.6-35.5); Mean Corpuscular Hemoglobin 32.5 pg (28.0-33.3); Mean Corpuscular Volume 105.8 fL (83.0-100.0); Mean Platelet Volume 11.1 fL (9.4-12.4); Platelet Count 153 K/mcL (140-400); Red Blood Count 2.92 M/mcL (3.82-4.97); Red Cell Distribution Width 14.6 % (11.5-14.5); White Blood Count 4.3 K/mcL (4.3-11.1)
[2021-02-15 07:29] LABS: BUN/Creatinine Ratio 32 (6-26); Blood Urea Nitrogen 25 mg/dL (8-23); Calcium 8.8 mg/dL (8.6-10.3); Carbon Dioxide > 45 mEq/L (23-29); Chloride 86 mEq/L (98-107); Glucose 174 mg/dL (70-105); Osmolality,Calculated 303 (280-300); Potassium 3.5 mEq/L (3.5-5.1); Sodium 142 mEq/L (136-145); eGFR For African Americans > 60 (> 60); eGFR For Non-African Americans > 60 (> 60)
[2021-02-15] MEDS: Aspirin 81 MG TAB.CHEW PO SCH (10:25)
[2021-02-15] MEDS: amLODIPine 5 MG TABLET PO SCH (10:25)
[2021-02-15] MEDS: Furosemide 40 MG/4 ML VIAL IVP SCH (10:26)
[2021-02-15 15:18] LABS: VBG HCO3 60 mEq/L (21-27); VBG PCO2 68 mmHg (41-51); VBG PH 7.56 pH Units (7.32-7.42); VBG PO2 106 mmHg (25-50)
[2021-02-15] MEDS: Melatonin 3 MG TABLET PO SCH (20:22)
[2021-02-15] MEDS: QUEtiapine Fumarate 25 MG TABLET PO SCH (20:22)
[2021-02-16] MEDS: ceFAZolin 2,000 MG in 0.9 % Sodium Chloride 100 ML IVPB SCH ×3 (00:02→17:27)
[2021-02-16] MEDS: Ipratropium 1 PUFF INHALER IH SCH ×6 (00:06→20:31)
[2021-02-16] MEDS: *HR* Enoxaparin 40 MG/0.4 ML SYRINGE SQ SCH ×2 (06:13→17:29)
[2021-02-16 07:12] LABS: BUN/Creatinine Ratio 41 (6-26); Blood Urea Nitrogen 28 mg/dL (8-23); Calcium 8.8 mg/dL (8.6-10.3); Carbon Dioxide > 45 mEq/L (23-29); Chloride 86 mEq/L (98-107); Glucose 144 mg/dL (70-105); Osmolality,Calculated 296 (280-300); Potassium 3.7 mEq/L (3.5-5.1); Sodium 139 mEq/L (136-145); eGFR For African Americans > 60 (> 60); eGFR For Non-African Americans > 60 (> 60)
[2021-02-16] MEDS: Aspirin 81 MG TAB.CHEW PO SCH (09:20)
[2021-02-16] MEDS: Furosemide 40 MG TABLET PO SCH (09:20)
[2021-02-16] MEDS: amLODIPine 5 MG TABLET PO SCH (09:20)
[2021-02-16 09:25] LABS: Hematocrit 31.5 % (35.3-44.9); Hemoglobin 9.8 g/dL (11.5-15.4); Mean Corpuscular HGB Conc 31.1 g/dL (31.6-35.5); Mean Corpuscular Hemoglobin 33.2 pg (28.0-33.3); Mean Corpuscular Volume 106.8 fL (83.0-100.0); Mean Platelet Volume 12.3 fL (9.4-12.4); Platelet Count 122 K/mcL (140-400); Red Blood Count 2.95 M/mcL (3.82-4.97); Red Cell Distribution Width 14.3 % (11.5-14.5); White Blood Count 4.8 K/mcL (4.3-11.1)
[2021-02-16 10:31] LABS: VBG HCO3 56 mEq/L (21-27); VBG PCO2 63 mmHg (41-51); VBG PH 7.55 pH Units (7.32-7.42); VBG PO2 167 mmHg (25-50)
[2021-02-16] MEDS: QUEtiapine Fumarate 25 MG TABLET PO SCH (20:30)
[2021-02-16] MEDS: Melatonin 3 MG TABLET PO SCH (20:30)
[2021-02-17] MEDS: ceFAZolin 2,000 MG in 0.9 % Sodium Chloride 100 ML IVPB SCH ×2 (00:06→09:59)
[2021-02-17] MEDS: Ipratropium 1 PUFF INHALER IH SCH ×6 (00:12→19:50)
[2021-02-17] MEDS: amLODIPine 5 MG TABLET PO SCH (09:56)
[2021-02-17] MEDS: Aspirin 81 MG TAB.CHEW PO SCH (09:56)
[2021-02-17] MEDS: Furosemide 40 MG TABLET PO SCH (09:56)
[2021-02-17] MEDS: *HR* Enoxaparin 40 MG/0.4 ML SYRINGE SQ SCH ×2 (09:57→18:14)
[2021-02-17] MEDS: Benzonatate 100 MG CAPSULE PO PRN (09:57)
[2021-02-17 13:53] LABS: Hematocrit 33.3 % (35.3-44.9); Hemoglobin 10.6 g/dL (11.5-15.4); Mean Corpuscular HGB Conc 31.8 g/dL (31.6-35.5); Mean Corpuscular Hemoglobin 32.8 pg (28.0-33.3); Mean Corpuscular Volume 103.1 fL (83.0-100.0); Mean Platelet Volume 11.1 fL (9.4-12.4); Platelet Count 212 K/mcL (140-400); Red Blood Count 3.23 M/mcL (3.82-4.97); Red Cell Distribution Width 14.1 % (11.5-14.5); White Blood Count 5.8 K/mcL (4.3-11.1)
[2021-02-17 13:58] LABS: VBG HCO3 53 mEq/L (21-27); VBG PCO2 63 mmHg (41-51); VBG PH 7.54 pH Units (7.32-7.42); VBG PO2 54 mmHg (25-50)
[2021-02-17 14:44] LABS: BUN/Creatinine Ratio 40 (6-26); Blood Urea Nitrogen 29 mg/dL (8-23); Calcium 8.9 mg/dL (8.6-10.3); Carbon Dioxide > 45 mEq/L (23-29); Chloride 86 mEq/L (98-107); Glucose 214 mg/dL (70-105); Osmolality,Calculated 298 (280-300); Sodium 138 mEq/L (136-145); eGFR For African Americans > 60 (> 60); eGFR For Non-African Americans > 60 (> 60)
[2021-02-17] MEDS: Melatonin 3 MG TABLET PO SCH (23:09)
[2021-02-17] MEDS: QUEtiapine Fumarate 25 MG TABLET PO SCH (23:10)
[2021-02-18] MEDS: Ipratropium 1 PUFF INHALER IH SCH ×6 (00:08→20:47)
[2021-02-18] MEDS: Benzonatate 100 MG CAPSULE PO PRN (08:47)
[2021-02-18] MEDS: dexAMETHasone 4 MG TABLET PO SCH (08:48)
[2021-02-18] MEDS: *HR* Enoxaparin 40 MG/0.4 ML SYRINGE SQ SCH ×2 (08:48→16:46)
[2021-02-18] MEDS: Furosemide 40 MG TABLET PO SCH (08:48)
[2021-02-18] MEDS: amLODIPine 5 MG TABLET PO SCH (08:48)
[2021-02-18] MEDS: Aspirin 81 MG TAB.CHEW PO SCH (08:48)
[2021-02-18] MEDS ORDERED: *HR* HYDROmorphone (PF) 1 MG/ML SYRINGE IVP PRN (15:52)
[2021-02-18] MEDS: Melatonin 3 MG TABLET PO SCH (20:46)
[2021-02-18] MEDS: QUEtiapine Fumarate 25 MG TABLET PO SCH (20:46)
[2021-02-19] MEDS: Ipratropium 1 PUFF INHALER IH SCH ×7 (00:23→23:23)
[2021-02-19 05:14] LABS: ABG Base Excess 19 mEq/L (-2 to 3); ABG HCO3 47 mEq/L (21-27); ABG Oxygen Saturation 89 % (95-98); ABG PCO2 70 mmHg (35-45); ABG PH 7.44 pH Units (7.32-7.45); ABG PO2 58 mmHg (85-104); ABG TCO2 49 mEq/L (20-26)
[2021-02-19] MEDS: *HR* Enoxaparin 40 MG/0.4 ML SYRINGE SQ SCH ×2 (05:34→17:34)
[2021-02-19] MEDS: Furosemide 40 MG TABLET PO SCH (08:58)
[2021-02-19] MEDS: amLODIPine 5 MG TABLET PO SCH (08:58)
[2021-02-19] MEDS: dexAMETHasone 4 MG TABLET PO SCH (08:58)
[2021-02-19] MEDS: Aspirin 81 MG TAB.CHEW PO SCH (08:58)
[2021-02-19] MEDS ORDERED: polyethylene glycoL 3350 17 GM POWD.PACK PO PRN (10:43)
[2021-02-19] MEDS: Sennosides/Docusate Sodium TABLET PO SCH (11:49)
[2021-02-19 13:00] LABS: VBG HCO3 44 mEq/L (21-27); VBG PCO2 41 mmHg (41-51); VBG PH 7.64 pH Units (7.32-7.42); VBG PO2 115 mmHg (25-50)
[2021-02-19 13:09] LABS: Hemoglobin 11.6 g/dL (11.5-15.4); Mean Corpuscular HGB Conc 31.4 g/dL (31.6-35.5); Mean Corpuscular Hemoglobin 32.4 pg (28.0-33.3); Mean Corpuscular Volume 103.4 fL (83.0-100.0); Mean Platelet Volume 10.8 fL (9.4-12.4); Platelet Count 297 K/mcL (140-400); Red Blood Count 3.58 M/mcL (3.82-4.97); Red Cell Distribution Width 14.6 % (11.5-14.5)
[2021-02-19 14:08] LABS: BUN/Creatinine Ratio 43 (6-26); Blood Urea Nitrogen 28 mg/dL (8-23); Carbon Dioxide 36 mEq/L (23-29); Chloride 85 mEq/L (98-107); Glucose 186 mg/dL (70-105); Osmolality,Calculated 290 (280-300); Sodium 135 mEq/L (136-145); eGFR For African Americans > 60 (> 60); eGFR For Non-African Americans > 60 (> 60)
[2021-02-19] MEDS: QUEtiapine Fumarate 25 MG TABLET PO SCH (20:17)
[2021-02-19] MEDS: Melatonin 3 MG TABLET PO SCH (20:17)
[2021-02-20] MEDS: Sennosides/Docusate Sodium TABLET PO SCH ×2 (02:24→10:39)
[2021-02-20] MEDS: Ipratropium 1 PUFF INHALER IH SCH ×4 (04:16→16:19)
[2021-02-20] MEDS: *HR* Enoxaparin 40 MG/0.4 ML SYRINGE SQ SCH (05:47)
[2021-02-20 08:50] LABS: VBG HCO3 53 mEq/L (21-27); VBG PCO2 64 mmHg (41-51); VBG PH 7.52 pH Units (7.32-7.42); VBG PO2 128 mmHg (25-50)
[2021-02-20] MEDS: Aspirin 81 MG TAB.CHEW PO SCH (10:38)
[2021-02-20] MEDS: dexAMETHasone 4 MG TABLET PO SCH (10:38)
[2021-02-20] MEDS: amLODIPine 5 MG TABLET PO SCH (10:38)
[2021-02-20] MEDS: Furosemide 40 MG TABLET PO SCH (10:39)
[2021-02-20 12:08] VITALS: BP 125/67; PULSE 91; TEMP 97.3; O2SAT 94
== END 2021-02-20 17:55 | disposition other institution (70) | DRG 871 ==
LOC: 2NNU → OBSVTOIN 23:22 → SUATTDRO 23:22 → 3NENU 01-26 09:08
PROVIDERS: ADMIT Internal Medicine; ATTEND Pharmacist